=== PATIENT | female | born 1985 | race Caucasian/White ===

== ENCOUNTER 2018-08-16 16:13 | Inpatient (IN) | payer MEDICAID ==
[~2018-08-16] VITALS: Ht 152.4 cm; Wt 74.0 kg
[~2018-08-16 16:13] MED LIST: OXYTOCIN 30 UNITS/LR 500 ML BAG IV ONE
[2018-08-16 16:41] VITALS: Ht 152.4 cm; Wt 74.0 kg
[2018-08-16 16:42] VITALS: BP 115/70; PULSE 81; RESP 16
[2018-08-16] MEDS: LACTATED RINGER'S 1,000 ML IV SCH (16:50)
[2018-08-16] MEDS ORDERED: METHYLERGONOVINE 0.2 MG INJ IM PRN (17:00)
[2018-08-16] MEDS ORDERED: OXYTOCIN 30 UNITS/LR 500 ML IV PRN (17:00)
[2018-08-16] MEDS ORDERED: MISOPROSTOL 200 MCG TAB PR PRN ×2 (17:00→22:00)
[2018-08-16] MEDS ORDERED: CARBOPROST 250 MCG INJ IM PRN (17:00)
[2018-08-16] MEDS ORDERED: LACTATED RINGER'S 1,000 ML IV SCH (21:44)
--- NOTE | 2018-08-16 21:44 | HP ---
Date/Time of Note Date/Time of Note DATE: 08/16/18 TIME: 21:41 OB - History Hx of Present Free Text/Dictation 32 YO with IUP at 39 weeks with history of previous delivery, who desires to have repeat delivery and Permanent sterilization. she also has UCs. she denies LOF per vagina or vaginal bleeding. I discussed with the patient the risks, benefits, indications, and alternatives of procedure including but not limited to risks of infection, bleeding, damage to other organs, bowel, bladder, hernia formation, scar formation, possibility of blood transfusion, possible need for emergency hysterectomy, as well as the fact that tubal ligation may fail and there is 1 to 2% risk of failure over lifetime of tubal ligations and the fact that tubal ligation is permanent and irreversible. She was allowed to ask questions. All her questions were answered. Informed consent has been obtained. Care: Good Care Ultrasounds: Normal mid trimester US Obstetrical Complications: None Medical Complications: None Past Family/Social History * Past Medical, Surgical, Family and Obstetric Histories reviewed from chart. OB Admission Exam Vital Signs Vital Signs Vital Signs Date Temp Pulse Resp B/P (MAP) Pulse Ox O2 O2 Flow FiO2 Time Delivery Rate 08/16/18 98.6 81 16 115/70 16:42 (85) Physical Exam HEENT: WNL Heart: Rhythm Normal Lungs: Clear, Equal Abdomen: WNL Extremities: Normal Reflexes: Normal Last 72 hours Lab Results CBC & BMP 08/16/18 16:50 OB Assessment/Plan Other Assessment: Assessment: IUP 39 weeks h/o previous Desires repeat Desires permanent sterilization Other plan: Plan: Repeat Delivery Tubal ligation may be done by either salpingectomy or modified [place] BTL JENARO FIGUEROA MD Aug 16, 2018 21:44
[2018-08-16] MEDS ORDERED: LANOLIN HPA 1 PKT TOP PRN (22:00)
[2018-08-16] MEDS ORDERED: NA PHOSPHATE/BIPHOS 133 ML ENEMA PR PRN (22:00)
[2018-08-16] MEDS ORDERED: OXYCODONE/ACETAMINOPHEN (5/325) TAB PO PRN (22:00)
[2018-08-16] MEDS ORDERED: morphine SULFATE/PF (10 MG/10 ML) INJ ONE (22:27)
[2018-08-16] MEDS ORDERED: OXYTOCIN 10 UNIT INJ ONE (22:27)
[2018-08-16] MEDS ORDERED: PHENYLephrine (100 MCG/ML) 10ML SYG ONE (22:27)
[2018-08-16] MEDS ORDERED: ONDANSETRON 4 MG INJ ONE (22:27)
[2018-08-16] MEDS: CEFAZOLIN 2 GM/50 ML (PMX) 50 ML IVPB SCH (22:30)
--- NOTE | 2018-08-16 22:41 | PREAC ---
Date/Time of Note Date/Time of Note DATE: 08/16/18 TIME: 22:39 Anesthesia Eval and Record Evaluation Time Pre-Procedure Interview DATE: 08/16/18 TIME: 22:39 Age 32 Sex female NPO: 8 hrs Preoperative diagnosis IUP Planned procedure Repeat Csection Past Medical History Past Medical History: Includes Endo: Diabetes GI: Morbid obesity Surgery & Anesthesia Issues No known issue Meds Anticoagulation: No Beta Claudia within 24 hr: No Reason Beta Claudia not given: Pt. not on B-Claudia Current Medications Lactated Ringer's 1,000 ml @ 125 mls/hr Q8H IV Last administered on 08/16/18at 16:50; Admin Dose 125 MLS/HR; Start 08/16/18 at 16:43 Cefazolin Sodium/ Dextrose 50 ml @ 100 mls/hr ONCE IVPB ; Start 08/16/18 at 17: 00 Oxytocin/Lactated Ringer's 500 ml @ 0 mls/hr ONCE PRN IV VAGINAL BLEEDING; Start 08/16/18 at 17:00 Methylergonovine Maleate (Methergine) 0.2 mg ONCE PRN IM VAGINAL BLEEDING; Start 08/16/18 at 17:00 Carboprost Tromethamine (Hemabate) 250 mcg ONCE PRN IM VAGINAL BLEEDING; Start 08/16/18 at 17:00 Misoprostol (Cytotec) 1,[address] VAGINAL BLEEDING; Start 08/16/18 at 17:00 Lactated Ringer's 1,000 ml @ 125 mls/hr Q8H IV ; Start 08/16/18 at 21:44; Stop 08/17/18 at 01:43 Oxycodone/ Acetaminophen (Percocet (5/ 325)) 1 tab Q4H PRN PO PAIN LEVEL 4-6; Start 08/16/18 at 22:00 Oxycodone/ Acetaminophen (Percocet (5/ 325)) 2 tab Q4H PRN PO PAIN LEVEL 7-10; Start 08/16/18 at 22:00 Ibuprofen (Motrin) 600 mg Q6 PO ; Start 08/17/18 at 00:00 Simethicone (Mylicon) 160 mg Q8H PRN PO DISTENSION/GAS/BLOATING; Start 08/16/18 at 22:00 Senna/Docusate Sodium (Senokot-S) 1 tab BID PO ; Start 08/17/18 at 09:00 Sodium Biphosphate/ Sodium Phosphate (Fleet Enema) [address] CONSTIPATION; Start 08/16/18 at 22:00 Lanolin (Lanolin Hpa) 1 applic BEDSIDE MEDICATION PRN TOP BEDSIDE FOR MELITA TO NIPPLES; Start 08/16/18 at 22:00 Diphtheria/ Tetanus/Acell Pertussis (Adacel) 0.5 ml ONCE ONCE IM* ; Start 08/19 at 09:00; Stop 08/19/18 at 09:01 Measles/Mumps/ Rubella Vaccine Live (Mmr Ii Vaccine) 0.5 ml ONCE ONCE SC* ; Start 08/19/18 at 09:00; Stop 08/19/18 at 09:01 Misoprostol (Cytotec) 1,[address] VAGINAL BLEEDING; Start 08/16/18 at 22:00 Meds reviewed: Yes Allergies Coded Allergies: No Known Allergy (Unverified , 08/16/18) Allergies Reviewed: Yes Labs/Studies Labs Reviewed: Reviewed by anesthesiologist Result Diagram: 08/16/18 1650 08/16/18 1650 Laboratory Tests 08/16/18 16:50 Blood Bank Test 08/16/18 16:50 Antibody Screen NEGATIVE Blood Type O POSITIVE Rh Immune Globulin Candidate NO test: Positive Studies: ECG Pre-procedure Exam Last vitals Vital Signs Date Temp Pulse Resp B/P (MAP) Pulse Ox O2 O2 Flow FiO2 Time Delivery Rate 08/16/18 98.6 81 16 115/70 16:42 (85) Airway: Adequate mouth opening, Adequate thyromental dist Mallampati: Mallampati II Teeth: Normal Lung: Normal Heart: Normal ASA Physical Status ASA physical status: 2 Emergency: None Planned Anesthetic Neuraxial: Spinal Planned Pain Management Sub-arachniod narcotics, Parenteral pain med Pre-operative Attestations Prior to commencing anesthesia and surgery, the patient was re-evaluated, there was verification of: *The patient's identity *The results of appropriate recent lab work and preoperative vital signs *The above evaluation not changing prior to induction *Anesthetic plan, risk benefits, alternative and complications discussed with patient/family; questions answered; patient/family understands, accepts and wishes to proceed. ADRIAN SELF MD Aug 16, 2018 22:41
--- NOTE | 2018-08-16 23:40 | OPR ---
Date/Time of Note Date/Time of Note DATE: 08/16/18 TIME: 23:36 Operative Report Procedure Date: Aug 16, 2018 Preoperative Diagnosis 1. Term , history of previous delivery: 2. Desires repeat delivery. 3. Desires permanent sterilization Postoperative Diagnosis 1. Term , history of previous delivery: 2. Desires repeat delivery. 3. Desires permanent sterilization Operation/Procedure Performed Repeat delivery Bilateral distal salpingectomy Surgeon Luis Valentino MD Tool Filer Micaela Escalante MD Anesthesia Type: spinal Estimated Blood Loss: other (700) Transfusion none Specimen bilateral tubal segments Grafts/Implants none Tubes/Drains none Complications none Pt Condition Post Procedure: stable Disposition: PACU Procedure Description The risks, benefits, indications, alternatives of procedure including, but not limited to risk of infection, bleeding, damage to other organs, bowel, bladder, hernia formation, scar formation, possibility of blood transfusions, the risks of tubal ligation such as failure and future pregnancies were discussed with the patient. The fact that BTL is permanent and irreversible also discussed with patient. She was allowed to ask questions. All her questions were answered. Informed consent was obtained. DESCRIPTION OF PROCEDURE: She was taken to the operating room. Spinal ane sthesia was induced. She was prepped and draped in the usual sterile fashion. Surgical time out one. Anesthesia was tested to be adequate. With permission from anesthesiologist, a knife was used to make a Pfannenstiel skin incision. The incision was taken down in layers. The fascia was cut, undermined and from the underlying muscle using sharp and blunt dissection. All the bleeders were cauterized. Peritoneum was entered bluntly. A low transverse incision was developed over the uterus. Amniotic fluid was clear and adequate. A viable in vertex presentation was delivered without any difficulty. The cord was clamped and cut, handed to awaiting team. Placenta was then delivered. Uterus was exteriorized, wrapped around a moist lap. Inside uterus was cleaned using a dry lap. All residual membranes were removed. The uterine incision was then closed using #1 Monocryl in 2 layers. A 6 cm distal end of the right tube was ligated 3 times using 0 plain tie and the ligated portion was cut, sent to pathology. Same procedure was done on the contralateral side. The uterus was inserted back inside the abdominal cavity. Irrigation was done carefully. Careful evaluation of the uterine incision revealed no further bleeding. The tubal ligation sites were evaluated carefully. There was no bleeding. The peritoneum and rectus muscles and fascia were evaluated. All bleeders cauterized. Peritoneum was closed using 2-0 Monocryl. At this time, the count was correct. Rectus muscle was reapproximated using 2-0 Monocryl. Rectus fascia was closed using #1 Vicryl. Subcutaneous tissue was cleaned and irrigated. All bleeders cauterized and the skin closed using Insorb. All counts correct. LUIS VALENTINO MD Aug 16, 2018 23:40
--- NOTE | 2018-08-16 23:54 | PAC ---
Date/Time of Note Date/Time of Note DATE: 08/16/18 TIME: 23:54 Post-Anesthesia Notes Post-Anesthesia Note Last documented vital signs Vital Signs Date Temp Pulse Resp B/P (MAP) Pulse Ox O2 O2 Flow FiO2 Time Delivery Rate 08/16/18 98.6 81 16 115/70 16:42 (85) Activity: WNL Respiratory function: WNL Cardiovascular function: WNL Mental status: Baseline Pain reasonably controlled: Yes Hydration appropriate: Yes Nausea/Vomiting absent: Yes Comments BP:105/65,pulse:78,spo2:100%, T:98,8 ADRIAN SELF MD Aug 16, 2018 23:54
[2018-08-17] MEDS ORDERED: NALOXONE (0.4 MG/ML) INJ IV PRN
[2018-08-17] MEDS ORDERED: ONDANSETRON 4 MG INJ IV PRN
[2018-08-17] MEDS ORDERED: morphine 2 MG INJ IV PRN
[2018-08-17] MEDS ORDERED: DIPHENHYDRAMINE 50 MG INJ IV PRN
[2018-08-17] MEDS: LACTATED RINGER'S 1,000 ML IV SCH ×2 (00:43→12:10)
[2018-08-17] MEDS: KETOROLAC 30 MG INJ IV PRN ×3 (01:32→22:10)
[2018-08-17 02:20] VITALS: BP 129/70; PULSE 54; RESP 19
[2018-08-17 03:55] VITALS: BP 122/72; PULSE 80; RESP 20
[2018-08-17] MEDS: CEFAZOLIN 2 GM/50 ML (PMX) 50 ML IVPB SCH (04:33)
[2018-08-17] MEDS: IBUPROFEN 600 MG TAB PO SCH ×4 (06:00→18:00)
--- NOTE | 2018-08-17 07:58 | QN ---
Documentation Comment s/p c/s Subjective: no complaint Objective: Afebrile, VSS NAD A&O Abdomen: soft, appropriate tender Incision: no sign of bleeding/infection mild lochia Extremity: 1+ edema bilaterally Assessment: S/p C/S and BTL Recovering Well Plan: current care JENARO FIGUEROA MD Aug 17, 2018 07:58
[2018-08-17 08:20] VITALS: BP 96/46; PULSE 63; RESP 17
[2018-08-17] MEDS: SENNA/DOCUSATE NA (8.6MG/50MG) TAB PO SCH ×2 (09:08→20:49)
[2018-08-17 12:00] VITALS: BP 107/58; PULSE 67; RESP 16
[2018-08-17 16:00] VITALS: BP 101/61; PULSE 62; RESP 17
[2018-08-17 20:15] VITALS: BP 127/77; PULSE 75; RESP 17
[2018-08-18 03:50] VITALS: BP 107/62; PULSE 72; RESP 18
[2018-08-18] MEDS: IBUPROFEN 600 MG TAB PO SCH ×5 (05:22→23:43)
--- NOTE | 2018-08-18 08:25 | DS ---
Date/Time of Note Date/Time of Note DATE: 08/18/18 TIME: 08:23 Obstetrical Discharge Record Final Diagnosis Final Diagnosis: Term delivered Other Final Diagnosis she is tolerating regular diet, ambulating well and good pain control on oral meds and + Flatus. Vaginal Delivery Obstetrical Delivery: Bilateral Tubal Ligation Section Section: Repeat Complications Gestational Diabetes Condition on Discharge Physical Assessment Voiding: Yes Bowel Movement: Yes Breast: Soft, non-tender, Filling Fundus: Firm Abdomen and Incision: soft, appropriate tenderness incision is intact and no sign of infection Calf Tenderness: No Patient Condition: Good JENARO FIGUEROA MD Aug 18, 2018 08:25
[2018-08-18 08:30] VITALS: BP 131/76; PULSE 71; RESP 18
[2018-08-18] MEDS: SENNA/DOCUSATE NA (8.6MG/50MG) TAB PO SCH ×2 (10:06→21:28)
[2018-08-18] MEDS: OXYCODONE/ACETAMINOPHEN (5/325) TAB PO PRN ×2 (10:07→17:20)
[2018-08-18 16:42] VITALS: BP 130/76; PULSE 71; RESP 18
[2018-08-18 20:30] VITALS: BP 116/71; PULSE 63; RESP 18
[2018-08-19 03:40] VITALS: BP 122/63; PULSE 64; RESP 17
[2018-08-19] MEDS: IBUPROFEN 600 MG TAB PO SCH ×2 (05:34→12:00)
[2018-08-19] MEDS ORDERED: DIPHTH/TET/ACEL PERTUSS (ADULT) 0.5 ML VIAL IM* ONE (09:00)
[2018-08-19] MEDS ORDERED: MEASLES,MUMPS,RUBELLA VACCINE INJ SC* ONE (09:00)
[2018-08-19] MEDS: SENNA/DOCUSATE NA (8.6MG/50MG) TAB PO SCH (09:20)
[2018-08-19 10:00] VITALS: BP 130/76; PULSE 68; RESP 18
--- NOTE | 2018-08-22 09:53 | NSTRPT ---
NST Information Datetime Report Generated by CPN: 08/22/2018 09:53 Datetime: 08/16/2018 19:24 NST Information EGA: 39.0 Datetime: 08/16/2018 09:45 NST Information EGA: 39.0 Time on Monitor: 08/16/2018 10:10 Time off Monitor: 08/16/2018 10:50 NST Duration (Min): 40 Test and Monitor Explained: Monitor Explained; Test Explained; Verbalized Understanding Pulse: 64 Resp: 18 SBP: 108 DBP: 63 Test Evaluation NST Interventions: Reposition Patient Patient States Movement: Present Contraction Frequency: q 4-7(mild 5/10) FHR Baseline : 140 Variability: Moderate 6-25bpm Accelerations: 15X15 FHR Category: Category I NST Results: Reactive Provider Notified: Hernan Comments: pt to u/s. REGAN 12.0cm. CEPHALIC. FBS 79. left pylectasis 10mm. Dr. Jiang notified and recommends delivery. Report given to Dr. Becerra and new orders to send patient to [facility] for repeat C/section at 1600. Explain to patient plan of care. pt states understnading. Electronically Signed By E-Signature: with User ID: [id number], Addendum/Amendment: FHT record shows normal variability and accelerations, small variable deceleratio ns with contractions. Datetime: 08/04/2018 11:27 NST Information EGA: 37.2 NST Duration (Min): 31 Datetime: 07/27/2018 10:26 NST Information EGA: 36.1 Datetime: 07/27/2018 10:17 NST Duration (Min): 44
== END 2018-08-19 11:40 | disposition home or self-care (01) | DRG 785 ==
LOC: L-D 16:13 → PP1 08-17 02:10 → EDSTATUS 08-19 16:12
PROVIDERS: ADMIT Specialist; ATTEND Specialist
PROC: 0UT70ZZ Resection of Bilateral Fallopian Tubes, Open Approach (ICD-10-PCS; 2018-08-16)
PROC: 10D00Z1 Extraction of Products of Conception, Low, Open Approach (ICD-10-PCS; principal; 2018-08-16 22:00)
DX: O34.211 Maternal care for low transverse scar from previous cesarean delivery (principal); Z3A.39 39 weeks gestation of pregnancy; Z30.2 Encounter for sterilization
CPT/HCPCS: 59025; 76816; 82947; 85025; 85610; 85730; 86592; 86850; 86900; 86901; 87340; 88302; 99464; J0690; J1885; J2274; J2370; J2405; J2590; J7120